=== PATIENT | female | born 2005 | race Caucasian/White ===

== ENCOUNTER 2024-06-03 18:23 | Emergency (ER) | payer OTHER, SELFPAY ==
[2024-06-03 18:27] VITALS: BP 119/76; PULSE 96; RESP 18; TEMP 36.8; O2SAT 92; BMI 24.7
--- NOTE | 2024-06-03 18:46 | ED.GENADULT ---
HPI - General Adult General Chief complaint: Head Injury/Pain Stated complaint: hit head, dizzy Time Seen by Provider: 06/03/24 18:25 Source: patient Mode of arrival: ambulatory Limitations: no limitations History of Present Illness HPI narrative: 18-year-old female coming in today after head injury yesterday. She states that she was moving equipment and a iron bar hit her on the head. She is not sure how much this weighed. It was attached to another piece of equipment. She states that she was fine afterwards however she slowly developed a headache into the evening. This morning she woke up with a headache that was bearable. She took some Aleve a around 1 in the afternoon. She then went to band rehearsal from 1-3 and at 3:00 p.m. started feeling dizzy and nauseated. She denies vomiting. She feels a bit foggy. She denies confusion. No slurred speech. No cognitive deficits. No neurologic deficits. No changes in her behavior. She has not needed to nap today. He was able to sleep from 11:00 p.m. to 7:00 a.m. this morning. Generally healthy student. Denies any medications. Related Data Home Medications ?Medication ?Instructions ?Recorded ?Confirmed naproxen sodium PO 06/03/24 Allergies Allergy/AdvReac Type Severity Reaction Status Date / Time No Known Drug Allergies Allergy Verified 06/03/24 18:32 Review of Systems Status of ROS: Reports: 10 or more systems reviewed and unremarkable except as noted in History and below [facility] Social History Smoking Status: Never smoker Exam Narrative: Exam Narrative: Well-nourished well-developed patient, a bit anxious, teary eyed. Alert and oriented. Answers questions appropriately. Thoughts are goal oriented and rational. No tangential or magical thinking noted. Patient speaks in full sentences without needing to catch her breath. Speech is not slurred or pressured. No word-finding difficulty. GCS is 15. HEENT: Normocephalic atraumatic. Pupils are equally round reactive to light. Extraocular muscles are intact. Conjunctivae are moist without any icterus noted. Moist mucous membranes. Posterior pharynx is normal. Neck is soft. No tenderness to palpation of the cervical spine. Cardiovascular: Heart is regular rate and rhythm S1 and S2 are present without any murmurs. Lungs: Clear to auscultation bilaterally no wheezes rhonchi or rales are appreciated. Strength is 5/5 of the upper and lower extremities. Romberg sign is negative. Cranial nerves 3-12 are normal. There is no nystagmus either horizontally or vertically. Gait is normal. Const: Vital Signs, click to edit/add: Vital Signs - 24 hr 06/03/24 18:27 Temperature 98.2 F Pulse Rate [Pulse Oximeter] 96 Respiratory Rate 18 Blood Pressure [Ri t Upper Arm] 119/76 Pulse Oximetry 92 Oxygen Delivery Me thod Room Air Course Vital Signs Vital signs: Initial Vital Signs Temperature 98.2 F 06/03/24 18:27 Temperature Source Temporal Artery Scan 06/03/24 18:27 Pulse Rate 96 06/03/24 18:27 Pulse Rhythm Regular 06/03/24 18:27 Respiratory Rate 18 06/03/24 18:27 Blood Pressure 119/76 06/03/24 18:27 Blood Pressure Mean 90 06/03/24 18:27 Blood Pressure Position Sitting 06/03/24 18:27 Pulse Oximetry 92 06/03/24 18:27 Oxygen Delivery Method Room Air 06/03/24 18:27 Vital Signs Temperature 98.2 F 06/03/24 18:27 Pulse Rate 96 06/03/24 18:27 Respiratory Rate 18 06/03/24 18:27 Blood Pressure 119/76 06/03/24 18:27 Pulse Oximetry 92 06/03/24 18:27 Oxygen Delivery Method Room Air 06/03/24 18:27 Temperature 98.2 F 06/03/24 18:27 Pulse Rate 96 06/03/24 18:27 Respiratory Rate 18 06/03/24 18:27 Blood Pressure 119/76 06/03/24 18:27 Pulse Oximetry 92 06/03/24 18:27 Oxygen Delivery Method Room Air 06/03/24 18:27 Medical Decision Making MDM Narrative Medical decision making narrative: 18-year-old female close head injury and mild concussion without cognitive deficits. We discussed symptomatic treatment and reasons for follow-up. Do not believe imaging is warranted at this time. Patient has no evidence of skull fractures, no altered mental status, no history of loss of consciousness, no vomiting. Discharge Plan Discharge Clinical Impression: Closed head injury, Concussion without loss of consciousness Instructions: Concussion (ED) Additional Instructions: You have a mild concussion. Okay to use Aleve and/or Tylenol as needed/as directed. You should refrain from any stimulating or rigorous physical activity for the next 24 hours. This includes studying difficult material, prolonged screen time, band rehearsal. You should return to activity as follows-each step should take 24 hours before advancing to the next step: 1. School for work. 2. Light physical activity, playing instrument on your own. 3. Rigorous physical activity, joining back in band rehearsal. 4. Return to normal daily activities. If symptoms return rest for 24 hours and resume at the last step that did not produce any symptoms. Follow-up with your primary care provider if you do not notice any improvement over the next week. Prescriptions: No Action naproxen sodium [Aleve] PO Stand Alone Forms: [employer] Info Instructions
== END 2024-06-03 19:02 | disposition home or self-care (01) ==
PROVIDERS: Emergency Provider Family Medicine
DX: S06.0X0A Concussion without loss of consciousness, initial encounter (principal); W22.8XXA Striking against or struck by other objects, initial encounter
CPT/HCPCS: 99282; 99283; 99284

== ENCOUNTER 2025-01-09 10:45 | Outpatient (RCR) | payer OTHER, SELFPAY | END 2025-05-09 23:59 | disposition home or self-care (01) | PROVIDERS: Visit Provider Physician Assistant | DX: G56.03 Carpal tunnel syndrome, bilateral upper limbs (principal); M65.849 Other synovitis and tenosynovitis, unspecified hand; R20.0 Anesthesia of skin; Z51.89 Encounter for other specified aftercare | CPT/HCPCS: 97110; 97140; 97165; 97530; 97535; X5282 ==

== ENCOUNTER 2025-06-11 09:45 | Outpatient (RCR) | payer OTHER, SELFPAY | END 2025-06-12 07:16 | disposition home or self-care (01) | PROVIDERS: Visit Provider Orthopaedic Surgery | DX: M25.532 Pain in left wrist (principal); M25.531 Pain in right wrist; Z51.89 Encounter for other specified aftercare | CPT/HCPCS: 97035; 97110; 97140; 97165; 97530; 97535; X5282 ==